=== PATIENT | male | born 1935 | race Caucasian/White ===

== ENCOUNTER 2019-03-06 08:46 | Observation (INO) | payer MEDICARE, MEDICAID, OTHER | END 2019-03-07 19:55 | LOC: ER FS 08:46 → 4TH 12:40 ==

== ENCOUNTER 2019-07-24 08:27 | Emergency (ER) | payer MEDICARE, MEDICAID ==
[~2019-07-24] VITALS: Ht 170 cm; Wt 81.0 kg
[~2019-07-24 08:27] MED LIST: ACET325T38 PO; ASPI-586 PO; ATEN50TA PO; CALC-938 PO; CHOL10003 PO; DIVA125T2 PO; DONE10TA12 PO; MELA3TAB65 PO; NAPR220T66 PO; PANT40TA2 PO; POLY17PO6 PO; POTA10TA10 PO; SERT100T8 PO; TRZ50T PO
--- NOTE | 2019-07-24 08:40 | ED Back Pain ---
General Chief Complaint: patient slipped out of his chair at the extended care facility and sustained an acute exacerbation of chronic low back pain. Denies any other injuries. EMS reports that someone was going to bring him and put [facility] decided to have him sent by EMS. Stated Complaint: FALL Source of Information: Patient, Family (some reports of patient has history of dementia hypertension he has not fallen in the past year. Patient has chronic left knee pain he's also been treated for hypertension.) Exam Limitations: Physical Impairments (with hearing difficulty and poor vision) History of Present Illness Date Seen by Provider: Jul 24, 2019 Time Seen by Provider: 08:32 Initial Comments 83 yr old male slipped out of his chair at the [facility] and complained of acute exacerbation of chronic back pain. Pt has a hx of left knee pain but reports it is no different than the past. Lives in [facility] care [facility]. He denies any other trauma and has no evidence of any other trauma or ecchymoses. Location: Lumbar Spine Timing/Duration: 1/2 Hour Severity: Moderate Pain/Injury Location: Back Radiation: Buttocks Method of Injury: Fall Modifying Factors: Improves With Movement Associated Symptoms: muscle spasms, weakness, lower back pain Allergies and Home Medications Allergies Coded Allergies: No Known Drug Allergies (Unverified , 03/06/19) Home Medications Acetaminophen 325 Mg Tablet, 325 MG PO Q6H PRN for PAIN-MILD, (Reported) Acetaminophen with Codeine 1 Each Tablet, 1 EACH PO Q6H Prescribed by: ENDER KAPOOR on 07/24/19 0945 Aspirin 81 Mg Tablet.dr, 81 MG PO DAILY, (Reported) Atenolol 50 Mg Tablet, 50 MG PO BID, (Reported) Calcium Carbonate 300 Mg Tab.chew, 300 MG PO Q4H, (Reported) Cholecalciferol (Vitamin D3) 1,000 Unit Tablet, 2,000 UNIT PO DAILY, (Reported) Divalproex Sodium 125 Mg Tablet.dr, 250 MG PO DAILY, (Reported) Donepezil HCl 10 Mg Tablet, 10 MG PO DAILY, (Reported) Melatonin 3 Mg Tablet, 3 MG PO HS, (Reported) Naproxen Sodium 220 Mg Tablet, 220 MG PO DAILY PRN for PAIN-MILD, (Reported) Naproxen Sodium 220 Mg Tablet, 220 MG PO HS, (Reported) Pantoprazole Sodium 40 Mg Tablet.dr, 40 MG PO DAILY, (Reported) Polyethylene Glycol 3350 17 Gm Powd.pack, 17 GM PO DAILY PRN for CONSTIPATION- 2ND LINE, (Reported) Potassium Chloride 10 Meq Tablet.er, 10 MEQ PO DAILY, (Reported) Sertraline HCl 100 Mg Tablet, 100 MG PO DAILY, (Reported) Trazodone HCl 50 Mg Tablet, 50 MG PO HS, (Reported) Patient Home Medication List Home Medication List Reviewed: Yes Review of Systems Constitutional: weakness, other (patient has an acute exacerbation of lumbar back pain) EENTM: hearing loss, blurred vision (macular degeneration) Respiratory: no symptoms reported (reports the patient smoked years ago but has no history of COPD) Cardiovascular: other (is true hypertension but no history of ischemic heart disease or any cardiac procedures) Gastrointestinal: no symptoms reported Genitourinary: no symptoms reported Musculoskeletal: back pain (lumbar spine), joint pain (left knee), muscle pain, muscle stiffness, muscle cramps (lumbar paraspinal muscles) Skin: no symptoms reported Psychiatric/Neurological: Anxiety, Depressed, Other (dementia diagnosed with Alzheimer's) Past [id number] Hx Patient Social History Type Used: Smokeless Tobacco 2nd Hand Smoke Exposure: No Recent Foreign Travel: Yes Recent Hopitalizations: No Immunizations Up To Date Date of Pneumonia Vaccine: Aug 05, 2016 Seasonal Allergies Seasonal Allergies: No Past Medical History Surgeries: No Respiratory: No Cardiac: No Neurological: No Dementia (diagnosis Alzheimer's currently on medication) Genitourinary: No Gastrointestinal: Yes Colitis (patient was seen at the [facility] a few years ago for abdominal pain and colonoscopy did not identify any abnormality) Musculoskeletal: Yes Degenerate Disk Disease (lumbar spine), Arthritis (left knee) Endocrine: No HEENT: No Cancer: No Prostate (elevated PSA but family and physician has decided not to pursue.) Psychosocial: No ODD (patient has been diagnosed with Alzheimer's dementia) Integumentary: No Blood Disorders: No Family Medical History Reviewed Nursing Family Hx Physical Exam Vital Signs Vital Signs - First Documented 07/24/19 08:47 Temp 36.6 Pulse 60 Resp 18 B/P (MAP) 170/73 (105) Pulse Ox 97 Capillary Refill : Less than 2 seconds Height, Weight, BMI Height: 5'6.00" Weight: 167lbs. 4.0oz. 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), Normal ENT Inspection (hard of hearing), Pharynx Normal (blue discoloration from using candy patient is edentulous) Neck: Limited Range of Motion (secondary to DJD), Other (patient has a bruit in the right carotid patient and son did not know about this) Cardiovascular: Regular Rate, Rhythm, No Edema, No Gallop, No JVD, Systolic M urmur (grade 1/6 consistent with aortic sclerosis) Respiratory: Chest Non Tender, Lungs Clear, Normal Breath Sounds, No Accessory Muscle Use, No Respiratory Distress Peripheral Pulses: 1+ Carotid (R); 2+ Carotid (L) Gastrointestinal: Normal Bowel Sounds, No Organomegaly, No Pulsatile Mass, Non Tender, Soft Back: Decreased Range of Motion (lumbar spine), Muscle Spasm, Vertebral Tenderness (lumbar spine) Extremity: Normal Capillary Refill, No Calf Tenderness, No Pedal Edema, Other (decreased range of motion in the left knee with osteoarthritis changes. Resume reveals an L1 compression fracture which appears to be acute. FINDINGS: There is mild left convexity lumbar scoliotic) Neurologic/Psychiatric: Alert, Oriented x3, Normal Mood/Affect, clinical medical assistant II-XII Norm as Tested, Abnormal Gait (secondary to left knee pain and low back pain), Other (patient has history of Alzheimer's dementia but is interactive) Skin: Warm/Dry, Ecchymosis (left hand old trauma) Lymphatic: No Adenopathy (patient does have an elevated PSA Dr. Pulido and identified that this could be consistent with prostate cancer however the family and the patient did not want to pursue this) Progress/Results/Core Measures Results/Orders Lab Results Laboratory Tests Test 07/24/19 09:15 Range/Units White Blood Count 14.9 H 4.3-11.0 10^3/uL Red Blood Count 5.18 4.35-5.85 10^6/uL Hemoglobin 15.2 13.3-17.7 G/DL Hematocrit 46 40-54 % Mean Corpuscular Volume 89 80-99 FL Mean Corpuscular Hemoglobin 29 25-34 PG Mean Corpuscular Hemoglobin Concent 33 32-36 G/DL Red Cell Distribution Width 14.5 10.0-14.5 % Platelet Count 202 130-400 10^3/uL Mean Platelet Volume 10.0 7.4-10.4 FL Neutrophils (%) (Auto) 82 H 42-75 % Lymphocytes (%) (Auto) 4 L 12-44 % Monocytes (%) (Auto) 13 H 0-12 % Eosinophils (%) (Auto) 1 0-10 % Basophils (%) (Auto) 0 0-10 % Neutrophils # (Auto) 12.2 H 1.8-7.8 X 10^3 Lymphocytes # (Auto) 0.6 L 1.0-4.0 X 10^3 Monocytes # (Auto) 1.9 H 0.0-1.0 X 10^3 Eosinophils # (Auto) 0.1 0.0-0.3 10^3/uL Basophils # (Auto) 0.1 0.0-0.1 10^3/uL My Orders Orders - ENDER KAPOOR DO Lumbar Spine 4 View Or More (07/24/19 08:33) Urinalysis (07/24/19 08:34) Cbc And Manual Diff (07/24/19 08:34) Comprehensive Metabolic Panel (07/24/19 08:34) Vital Signs/I&O 07/24/19 08:47 Temp 36.6 Pulse 60 Resp 18 B/P (MAP) 170/73 (105) Pulse Ox 97 Diagnostic Imaging Diagonstic Imaging: Xray Plain Films/CT/US/NM/MRI: other (LS spine) Comments FINDINGS: There is mild left convexity lumbar scoliotic curvature. There appears to be a compression fracture deformity involving L1 vertebral body. No definite retropulsion is seen. Remaining lumbar vertebrae show normal stature. There is multilevel degenerative disc disease with variable disc space narrowing and marginal spurring. Significant facet arthropathy is noted as well. No spondylolysis or spondylolisthesis is seen. Aorta is heavily calcified. IMPRESSION: 1. L1 compression fracture, age indeterminate but suspect acute as there is an area of lucency through the vertebral body. MRI may be useful for further evaluation to evaluate acuity. 2. Lumbar spondylosis and facet arthropathy. 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 Decision time for Depature: 09:39 Referrals: JUAN MANUEL GUNDERSON MD (PCP/Family) Primary Care Physician Patient Instructions: Dementia (DC), Low Back Pain (DC), Preventing Falls in the Older Adult Add. Discharge Instructions: Patient experienced a ground-level fall and was transferred by the assisted- living facility for evaluation. Imaging identifies a relatively recent L1 compression fracture. On further questioning the patient despite having dementia states that he did fall sometime in the recent week but was able to get up and no one was notified. Patient does have chronic low back pain and a history of elevated PSA which may be secondary to prostate enlargement and/or prostate cancer. Dr. Pulido has discussed with the patient and family possibility of prostate cancer. Patient has decided not to pursue this. Patient currently is under the care Dr. gunderson at the request of the son as Dr. Pulido is moved in the [facility]. Patient does complain of significant low back pain has asked for analgesic care. Tylenol 3 2 tablets at the given and he will have 1-2 tablets as needed every 6 hours when necessary pain caution for constipation and fall prevention has been given. Scripts Acetaminophen with Codeine (Acetaminophen-Cod #3 Tablet) 1 Each Tablet 1 EACH PO Q6H for Back Pain for 5 Days, #20 TAB Prov: ENDER KAPOOR DO 07/24/19 ENDER KAPOOR DO Jul 24, 2019 08:40
--- NOTE | 2019-07-24 09:10 | Diagnostic Imaging Report ---
INDICATION: Low back pain. TIME OF EXAM: 08:49 a.m. EXAMINATION: Multiple views of lumbar spine were obtained. FINDINGS: There is mild left convexity lumbar scoliotic curvature. There appears to be a compression fracture deformity involving L1 vertebral body. No definite retropulsion is seen. Remaining lumbar vertebrae show normal stature. There is multilevel degenerative disc disease with variable disc space narrowing and marginal spurring. Significant facet arthropathy is noted as well. No spondylolysis or spondylolisthesis is seen. Aorta is heavily calcified. IMPRESSION: 1. L1 compression fracture, age indeterminate but suspect acute as there is an area of lucency through the vertebral body. MRI may be useful for further evaluation to evaluate acuity. 2. Lumbar spondylosis and facet arthropathy. Dictated by: Dictated on workstation # [id number]
[2019-07-24 09:38] LABS: BASOPHILS % (AUTO) 0 % (0-10); EOSINOPHILS % (AUTO) 1 % (0-10); HEMATOCRIT 46 % (40-54); HEMOGLOBIN 15.2 G/DL (13.3-17.7); LYMPHOCYTES # (AUTO) 0.6 X 10^3 (1.0-4.0); LYMPHOCYTES % (AUTO) 4 % (12-44); MEAN CORPUSCULAR HEMOGLOBIN 29 PG (25-34); MEAN CORPUSCULAR HGB CONC 33 G/DL (32-36); MEAN CORPUSCULAR VOLUME 89 FL (80-99); MONOCYTES % (AUTO) 13 % (0-12); NEUTROPHILS # (AUTO) 12.2 X 10^3 (1.8-7.8); NEUTROPHILS % (AUTO) 82 % (42-75); PLATELET COUNT 202 10^3/uL (130-400); RED CELL DISTRIBUTION WIDTH 14.5 % (10.0-14.5); WHITE BLOOD COUNT 14.9 10^3/uL (4.3-11.0)
[2019-07-24 09:39] LABS: BASOPHILS # (AUTO) 0.1 10^3/uL (0.0-0.1); EOSINOPHILS # (AUTO) 0.1 10^3/uL (0.0-0.3); MONOCYTES # (AUTO) 1.9 X 10^3 (0.0-1.0)
[2019-07-24] MEDS ORDERED: ACET1TAB43 PO (09:45)
[2019-07-24 09:58] LABS: BAND NEUTROPHILS 5 %; BASOPHILS % (MANUAL) 0 %; EOSINOPHILS % (MANUAL) 1 %; LYMPHOCYTES % (MANUAL) 4 %; MONOCYTES % (MANUAL) 11 %; NEUTROPHILS % (MANUAL) 79 %; RBC MORPH NORMAL
[2019-07-24 09:59] LABS: ALBUMIN 3.8 GM/DL (3.2-4.5); CALCIUM 9.2 MG/DL (8.5-10.1); CREATININE SERUM 1.19 MG/DL (0.60-1.30); POTASSIUM 4.2 MMOL/L (3.6-5.0); TOTAL PROTEIN 7.4 GM/DL (6.4-8.2)
[2019-07-24] MEDS ORDERED: APAP 300 MG/CODEINE 30 MG (TYLENOL #3) TAB PO ONE (10:15)
[2019-07-24 11:32] VITALS: BP 117/94
== END 2019-07-24 11:07 ==
LOC: EDUNIT# 08:27 → ER FS 08:31
DX: S32.019A Unspecified fracture of first lumbar vertebra, initial encounter for closed fracture (principal); M17.12 Unilateral primary osteoarthritis, left knee; G30.9 Alzheimer's disease, unspecified; F02.80 Dementia in other diseases classified elsewhere, unspecified severity, without behavioral disturbance, psychotic disturbance, mood disturbance, and anxiety; I10 Essential (primary) hypertension; F91.3 Oppositional defiant disorder; Z79.82 Long term (current) use of aspirin; W07.XXXA Fall from chair, initial encounter; Y92.129 Unspecified place in nursing home as the place of occurrence of the external cause
CPT/HCPCS: 36415; 72110; 80053; 85007; 85027